=== PATIENT | male | born 1970 | race Caucasian/White ===

== ENCOUNTER 2021-07-16 00:26 | Emergency (ER) | payer MEDICAID, SELFPAY ==
[2021-07-16 00:31] VITALS: BP 122/78; PULSE 62; RESP 16; TEMP 36.8; O2SAT 95; BMI 28.7
--- NOTE | 2021-07-16 01:21 | ED.DENTAL ---
HPI - Dental/Oral General Chief complaint: Dental/Oral Stated complaint: dental pain Time Seen by Provider: 07/16/21 01:14 Source: patient Mode of arrival: ambulatory Limitations: no limitations History of Present Illness HPI Narrative: Patient comes to the emergency room complaining of dental pain in the maxillary side on the left. Patient states he has been on a waiting list to be seen by a dentist for a root canal. Patient denies fever or chills Related Data Previous Rx's Medication Instructions Recorded ketorolac 10 mg tablet 10 mg PO TID PRN 5 Days #10 tab 07/16/21 penicillin V potassium 500 mg 500 mg PO TID 10 Days #30 tab 07/16/21 tablet Allergies Allergy/AdvReac Type Severity Reaction Status Date / Time No Known Allergies Allergy Verified 07/16/21 00:31 [No Known Allergies*] Review of Systems Review of Systems: Constitutional : No Weight loss, No Fever, No Chills, No Night Sweats, No Fatigue, No Malaise ENT/Mouth : Complaining of dental pain, No Hearing loss, No Ear Pain, No Nasal Congestion, No Sinus Pain, No Hoarseness, No sore throat, No Rhinorrhea, No Swallowing Difficulty Eyes: No Eye Pain, No Swelling, No Redness, No Foreign Body, No Discharge, No Vision Changes Cardiovascular : No Chest Pain, No SOB, No Dyspnea on Exertion, No Orthopnea, No Edema, No Palpitations Respiratory : No Cough, No Sputum, No Wheezing, No Smoke Exposure, No Dyspnea Gastrointestinal : No Nausea, No Vomiting, No Diarrhea, No Constipation, No abdominal Pain, No Hematochezia, No Melena Genitourinary : no irregular bleeding, No Dysuria, No Urinary Frequency, No Hematuria, No Urinary Incontinence, No Urgency, No Flank Pain, No Urinary Flow Changes, No Hesitancy Musculoskeletal : No joint pain, No Myalgias, No Joint Swelling Skin : No Skin Lesions, No rash Neuro : No Weakness, No Numbness, No Paresthesias, No Loss of Consciousness, No Dizziness, No Headache Psych : No Anxiety/Panic, No Depression, No SI/HI/AH/VH, No Social Issues, Heme/Lymph: No Bruising, No Bleeding,No Lymphadenopathy Endocrine : No Polyuria, No Polydipsia, No Temperature Intolerance PMFSH Past Medical History Medical History Hypertension Social History Social History Advance Directives: No Physical Exam Vital Signs: Vital Signs: Last Vital Signs Temp 98.2 F 07/16/21 00:31 Pulse 62 07/16/21 00:31 Resp 16 07/16/21 00:31 BP 122/78 07/16/21 00:31 Pulse Ox 95 07/16/21 00:31 Body Mass Index 28.7 Const: Other: Appearance: Alert. Oriented X3. No acute distress. Eyes: Pupils equal, round and reactive to light. ENT: Pharynx normal. No visualized abscess, tenderness to palpation on the maxillary left side Neck: Normal inspection. Neck supple. No lymph nodes noted. No crepitus CVS: Normal heart rate and rhythm. Pulses normal. Normal S1 and S2 Respiratory: No respiratory distress. Breath sounds normal. No Wheezing. No rales Abdomen: Soft and nontender. No rigidity. No distention. good BS x4 Skin: Skin warm and dry. Normal skin color. Normal skin turgor. Extremities: No lower extremity edema. No lower extremity edema. No Lacerations. No Rash Neuro: Oriented X 3. No motor deficit. No sensory deficit. Moving all extermities. No slurred speech. Course Course Course Narrative: Patient was given the 1st dose of penicillin and ketorolac IM. Patient is to follow-up with his primary care physician. Discharge Plan Discharge Clinical Impression: Pain, dental Patient Disposition: Home, Self-Care Instructions: Toothache (ED) Additional Instructions: Please follow-up with your primary care physician and with her dentist tomorrow. If you have any worsening or new symptoms, please return to the emergency room or call 911 Prescriptions: New ketorolac 10 mg tablet 10 mg PO TID PRN (Reason: pain) 5 Days Qty: 10 RF: 0 penicillin V potassium 500 mg tablet 500 mg PO TID 10 Days Qty: 30 RF: 0
[2021-07-16] MEDS: Ketorolac Tromethamine 60 MG/2 ML VIAL IM (01:34)
[2021-07-16] MEDS: Penicillin V Potassium 250 MG TABLET 500 MG PO (01:34)
--- NOTE | 2021-07-16 01:37 | PC.NURSE ---
Medicated per discharge.
== END 2021-07-16 01:47 | disposition home or self-care (01) ==
PROVIDERS: Emergency Provider Emergency Medicine; PCP Physician Assistant
DX: K08.89 Other specified disorders of teeth and supporting structures (principal); I10 Essential (primary) hypertension
CPT/HCPCS: 96372; 99283; 99284; J1885

== ENCOUNTER 2021-07-16 17:10 | Emergency (ER) | payer MEDICAID, SELFPAY ==
[2021-07-16 17:43] VITALS: BP 142/86; PULSE 64; RESP 16; TEMP 37.2; O2SAT 99; BMI 28.7
[2021-07-16] MEDS: Acetaminophen 325 MG TABLET 650 MG PO (17:51)
--- NOTE | 2021-07-16 18:21 | ED.DENTAL ---
HPI - Dental/Oral General Chief complaint: Dental/Oral Stated complaint: sore throat, headache Time Seen by Provider: 07/16/21 18:11 Source: patient Mode of arrival: ambulatory Limitations: no limitations History of Present Illness HPI Narrative: 50 y/o male presenting with persistent and worsening dental pain x1 week. He was seen here last night for the same and discharged on ketorolac and penicillin. He reports worsening pain. He has a headache. No fevers or facial swelling. He has been on a wait list for 2-3 months for a root canal with [facility]. Complaint: tooth pain Location: Tooth # Teeth map: 1. dental tenderness with gingival tenderness and fluctuance Onset (ago): week(s) (1) Duration: constant Severity: severe Severity scale (1-10): 10 Relieving factors: NSAIDs Exacerbating factors: chewing, cold and heat Context: history of dental caries and poor dental care Associated symptoms: gum swelling and pain with swallowing Treatment prior to arrival: oral analgesic Related Data Previous Rx's Medication Instructions Recorded ketorolac 10 mg tablet 10 mg PO TID PRN 5 Days #10 tab 07/16/21 oxycodone 5 mg tablet 5 mg PO Q6H PRN #10 tab 07/16/21 penicillin V potassium 500 mg 500 mg PO TID 10 Days #30 tab 07/16/21 tablet Allergies Allergy/AdvReac Type Severity Reaction Status Date / Time No Known Allergies Allergy Verified 07/16/21 00:31 [No Known Allergies*] Review of Systems Constitutional: Constitutional: Denies chills, Denies fever(s) and Reports headache(s) Eyes: Eyes: Reports no additional eye complaints ENT: Denies bleeding gums, Reports dental pain, Denies dysphagia, Denies dizziness, Denies dry mouth, Denies ear discharge, Denies otalgia, Reports facial pain, Reports headache(s), Denies lip swelling, Denies neck pain, Denies odynophagia, Denies sinus pain and Denies throat swelling Cardiovascular: Cardiovascular: Denies chest pain and Denies dyspnea Respiratory: Respiratory: Denies cough and Denies dyspnea Gastrointestinal: Gastrointestinal: Denies dysphagia, Denies nausea, Denies odynophagia and Denies vomiting Musculoskeletal: Musculoskeletal: Denies neck pain Neurologic: Denies dizziness and Reports headache(s) Psychiatric: Psychiatric: Reports depression Allergic/Immunologic: Allergic/Immunologic: Denies lip swelling and Denies throat swelling PMFSH Past Medical History Medical History Hypertension Social History Social History Advance Directives: No Advance Directives Information Provided: No Physical Exam Vital Signs: Vital Signs: Last Vital Signs Temp 99.0 F 07/16/21 17:43 Pulse 64 07/16/21 17:43 Resp 16 07/16/21 17:43 BP 142/86 H 07/16/21 17:43 Pulse Ox 99 07/16/21 17:43 Body Mass Index 28.7 Appearance: Alert. Oriented X3. No acute distress. Eyes: Pupils equal, round and reactive to light. ENT: left lower dental tenderness to tooth #19 with associated gingival erythema, tenderness and punctate pustule. upper left molar with moderate tenderness, no gingival swelling or fluctuance. no facial swelling. Neck: Normal inspection. Neck supple. CVS: Normal heart rate and rhythm. Pulses normal. Respiratory: No respiratory distress. Breath sounds normal. Skin: Skin warm and dry. Normal skin color. Normal skin turgor. No rashes. Extremities: No lower extremity edema. Neuro: Oriented X 3. nonfocal. CN II-XII intact. Course Course Course Narrative: 50 y/o male presenting with left lower dental pain, worsening x1 week. Started on abx at 2am today, has taken 2 doses so far. Toradol PO not helping his pain. He has not been on any narcotics for this pain. He has not tried any emergency dentists and has been on a wait list for 2-3 months. 18 G needles used to luis alberto abscess with small amount of pus expressed. Emergency dental list provided and he will call 1st thing in the morning. Will give Rx for oxycodone and have him continue toradol and PCN. Stable for d/c. Procedures Abscess I/D Site: oral Side (if applicable): left Technique: needle aspiration Sent for culture/gram staining?: No Irrigation: No Packing used?: none Complications: pain and bleeding Critical Care Time Critical Care Time Critical Care Time: No Discharge Plan Discharge Clinical Impression: Dental abscess Patient Disposition: Home, Self-Care Instructions: Dental Abscess (ED) Additional Instructions: Take the prescribed narcotic medication as needed for severe pain. Do not drive after taking this medication. Continue taking previously prescribed ketorolac 10 mg every 8 hours. Once you run out of this start ibuprofen 600 mg every 6-8 hours. Take with food. Also take Tylenol 1,000 mg every 6 hours around the clock, do not exceed 4,000 mg in a 24 hour period. Continue taking Penicillin for dental infection and abscess. Call the dentists on the emergency dental list provided to you. If you develop new or worsening symptoms call 911 or come back to the ER for further evaluation. Prescriptions: New oxycodone 5 mg tablet 5 mg PO Q6H PRN (Reason: pain) Qty: 10 RF: 0 No Action ketorolac 10 mg tablet 10 mg PO TID PRN (Reason: pain) 5 Days Qty: 10 RF: 0 penicillin V potassium 500 mg tablet 500 mg PO TID 10 Days Qty: 30 RF: 0 Stand Alone Forms: Work/School Release
== END 2021-07-16 18:56 | disposition home or self-care (01) ==
LOC: HO.ED 18:24
PROVIDERS: Emergency Provider Internal Medicine; PCP Physician Assistant
DX: K04.7 Periapical abscess without sinus (principal); K08.89 Other specified disorders of teeth and supporting structures; I10 Essential (primary) hypertension
CPT/HCPCS: 41800; 99283; 99284